=== PATIENT | female | born 1980 | race Caucasian/White ===

== ENCOUNTER → 2017-02-05 | Outpatient (CLI) | payer OTHER ==
[~2017-02-05] MED LIST: ALBUTEROL17 GM INH; AMLODIPINE BESYL5 MG PO; CLARITIN10 M3 PO; FLONASE ALLERG9.9 ML INH; LO LOESTRIN FE1 EACH PO; ZESTRIL40 MG PO
--- NOTE | ~2017-02-05 | EKG ---
PATIENT: ALISE DHILLON UNIT #: [id number] Ventricular Rate: 77 BPM Atrial Rate: 77 BPM P-R Interval: 132 ms QRS Duration: 76 ms Q-T Interval: 366 ms QTC Calculation(Bezet): 414 ms P [place]: 52 degrees Calculated R [place]: 13 degrees Calculated T [place]: 15 degrees Diagnosis Line: Normal sinus rhythm with sinus arrhythmia Diagnosis Line: Normal ECG Diagnosis Line: No previous ECGs available Diagnosis Line: Confirmed by GENARO YEBOAH MD ([id number]) on Diagnosis Line: 02/05/2017 1:37:45 PM INTERPRETING MD: OBINNA JOHNSON
[2017-02-05 12:33] LABS: ALBUMIN SERUM 3.8 g/dL (3.5-5.0); BILIRUBIN,TOTAL 0.4 mg/dL (0.2-2.0); BUN/CREATININE RATIO 17.14; CALCIUM SERUM 8.8 mg/dL (8.4-10.2); CREATININE SERUM 0.7 mg/dL (0.6-1.4); GLOM FILT RATE Estimated 110.7 mL/min (>60); POTASSIUM 3.9 mmol/L (3.5-5.1)
== END | disposition home or self-care (01) ==
LOC: CAMB 11:00
PROVIDERS: Surgery
DX: Z01.818 Encounter for other preprocedural examination (principal); K80.20 Calculus of gallbladder without cholecystitis without obstruction; I49.9 Cardiac arrhythmia, unspecified
CPT/HCPCS: 36415; 80053; 93005

== ENCOUNTER → 2017-02-12 | Day surgery (SDC) | payer OTHER ==
--- NOTE | ~2017-02-12 | OR ---
Unit #: [id number] #: [id number] Patient: ALISE DHILLON [id number] [address] [place], [place] [address] [id number] O MR#: [id number] NAME: ALISE DHILLON ROOM: Date of Procedure: 02/12/2017 Admission Date: 02/12/2017 Surgeon: Anil Ibarra Jr., M.D. : 1980 Attending Physician: Anil Ibarra Jr., M.D. Primary Care Physician: Jignesh Babb M.D. OPERATIVE REPORT INDICATIONS FOR PROCEDURE The patient is a 36-year-old white female, who recently been having intermittent mid epigastric and right upper quadrant abdominal pain, was worked up and noted to have evidence of cholelithiasis. Preoperative liver function tests are normal. It was felt she has been having biliary colic with chronic cholecystitis and cholelithiasis. She is brought in at this time at her request for laparoscopic cholecystectomy. The patient understands the procedure including the risks, including that of common duct injury, biliary leak and bleeding, and intra-abdominal organ injury, and consents. PREOPERATIVE DIAGNOSIS Chronic cholecystitis with cholelithiasis. POSTOPERATIVE DIAGNOSIS Chronic cholecystitis with cholelithiasis. Noting chronically inflamed gallbladder. ANESTHESIA General with endotracheal intubation and 0.5% Marcaine with epinephrine locally in the port sites. [employer] MANAGER Pina Kearns. PROCEDURE PERFORMED Laparoscopic cholecystectomy. DESCRIPTION OF PROCEDURE The patient was positioned in the supine position. After being anesthetized and intubated, she was prepped and draped in routine fashion for laparoscopic cholecystectomy. A small supraumbilical incision was made approximately a centimeter in length. This was carried down to the fascia. The fascia was lifted between 2 Kirit clamps and Veress needle was introduced into the abdomen. The abdomen was then inflated with CO2 gas. A 5-mm port was introduced into the abdomen followed by the camera. There was no evidence of any injury related to introduction of the port or the Veress needle. Brief intra-abdominal exploration was carried out. The patient was noted to have a large ovarian cyst as well as chronic inflamed gallbladder. Two 5-mm ports were placed laterally and an 11-mm port just to the right of the upper midline. The gallbladder was lifted. Dissection was carried out in the triangle of [place]. Cystic duct was Unit #: [id number] #: [id number] Patient: ALISE DHILLON isolated, small only 1 to 2 mm in diameter. It was hemoclipped x4 and divided approximately centimeter from its junction with the common duct. Cystic artery was identified, hemoclipped x3, and divided. The gallbladder was then removed from its bed with a hook cautery using a current of 20. There was obvious inflammation in the gallbladder bed itself. After the gallbladder was released, it was removed through the upper midline incision along the grasping clamp and the port. The port was replaced. Subhepatic space was checked. There was no evidence of any bleeding from the gallbladder bed. The clips on the cystic duct and cystic artery were intact with no evidence of any leak or bleeding. After this was noted, the fascia in the larger port site was approximated with neoClose technique. CO2 was expressed from the abdomen and the ports were removed. There was no evidence of any bleeding from the port sites. The port sites were injected with 0.5% Marcaine with epinephrine and irrigated, and after hemostasis was achieved with the Bovie cautery, the skin edges were approximated with stainless-steel skin clips and skin stapling device. Sterile dressings were applied externally. Estimated blood loss was less than 50 mL. The patient received less than 1000 mL of crystalloid solution during the procedure. Sponges and instrument counts were correct x3. No drains were used. No complications. The patient was taken to the recovery room with stable vital signs in satisfactory condition. Dictated by... Anil Ibarra Jr., M.D. JMB/darrel TD: 02/12/2017 20:20 JOB #: [id number] CC: Jignesh Babb M.D. OPERATIVE REPORT Page 1 of 1 X Anil Ibarra MD PROCEDURE OPERATIVE NOTE
== END | disposition home or self-care (01) ==
LOC: CSUR 08:08
DX: K80.10 Calculus of gallbladder with chronic cholecystitis without obstruction (principal); I10 Essential (primary) hypertension; E66.9 Obesity, unspecified; Z68.42 Body mass index [BMI] 45.0-49.9, adult; Z87.442 Personal history of urinary calculi; Z79.899 Other long term (current) drug therapy; Z98.890 Other specified postprocedural states
CPT/HCPCS: 84703; 88304; C1713; J0330; J0690; J1100; J2250; J2405; J2710; J3010